=== PATIENT | female | born 1980 | race Asian ===

== ENCOUNTER → 2017-11-21 | Outpatient (CLI) | payer BC ==
[2017-11-21 09:22] LABS: BASOPHILS % 0.2 % (0.0-2.0); EOSINOPHILS % 2.1 % (0.0-5.0); HEMATOCRIT. 38.5 % (36.0-48.0); HEMOGLOBIN. 12.7 g/dL (12.0-16.0); MEAN CORPUSCULAR HEMOGLOBIN 28.1 pg (28.0-32.0); MEAN CORPUSCULAR VOLUME 85.1 fL (81.0-99.0); MEAN PLATELET VOLUME 7.6 fl (7.4-10.4); MONOCYTES % 6.3 % (2.0-8.0); NEUTROPHILS % 62.4 % (40.0-76.0); PLATELET 295 x1000/uL (130-400); RED BLOOD CELL COUNT 4.53 mill/uL (4.2-5.4)
[2017-11-21 10:17] LABS: CHLORIDE 106 mEq/L (98-107)
[2017-11-21 11:00] LABS: CARBON DIOXIDE 25 mEq/L (21-32); HDL CHOLESTEROL 67 mg/dL (40-59); LDL CHOLESTEROL 83 mg/dL (5-100)
== END | disposition home or self-care (01) ==
LOC: LAB 08:53
PROVIDERS: ATTEND Family Medicine
DX: Z00.01 Encounter for general adult medical examination with abnormal findings (principal); R79.89 Other specified abnormal findings of blood chemistry
CPT/HCPCS: 36415; 80053; 80061; 83036; 84443; 85025; 86592; 87186

== ENCOUNTER → 2018-12-16 | Outpatient (CLI) | payer BC ==
[2018-12-16 11:33] LABS: CHLORIDE 104 mEq/L (98-107)
[2018-12-16 11:42] LABS: LDL CHOLESTEROL 114 mg/dL (5-100)
[2018-12-16 11:45] LABS: HDL CHOLESTEROL 78 mg/dL (40-59)
[2018-12-17 08:19] LABS: HIV SCREEN 4G Non Reactive (Non Reactive)
[2018-12-19 04:17] LABS: CHLAMYDIA TRACHOMATIS NAA Negative (Negative); NEISSERIA GONORRHOEAE NAA Negative (Negative)
== END | disposition home or self-care (01) ==
LOC: LAB 10:34
PROVIDERS: ATTEND Family Medicine
DX: Z00.01 Encounter for general adult medical examination with abnormal findings (principal)
CPT/HCPCS: 36415; 80061; 83036; 86592; 87389; 87491; 87591